=== PATIENT | female | born 1930 | race Caucasian/White ===

== ENCOUNTER 2020-05-06 16:56 | Emergency (ER) | payer SELFPAY ==
[~2020-05-06] VITALS: Ht 162.6 cm; Wt 77.3 kg
[2020-05-06 17:08] VITALS: BP 154/86; Ht 162.6 cm; Wt 77.3 kg
[2020-05-06 17:35] LABS: BILIRUBIN NEGATIVE (NEGATIVE); KETONE NEGATIVE (NEGATIVE); NITRITE NEGATIVE (NEGATIVE); UROBILINOGEN NORMAL mg/dL (< 2)
[2020-05-06 17:46] LABS: UDS - AMPHET NEGATIVE QUAL (NEGATIVE); UDS - BARB NEGATIVE QUAL (NEGATIVE); UDS - BENZO NEGATIVE QUAL (NEGATIVE); UDS - COCAINE NEGATIVE QUAL (NEGATIVE); UDS - OPIATE NEGATIVE QUAL (NEGATIVE); UDS - PCP NEGATIVE QUAL (NEGATIVE); UDS - THC NEGATIVE QUAL (NEGATIVE)
[2020-05-06 18:02] LABS: BASOPHILS 0.3 % (0-2); EOSINOPHILS 5.6 % (0-7); HEMOGLOBIN 13.8 g/dL (12-16); IMMATURE GRANULOCYTES 0.2 % (0-5); LYMPHOCYTES 17.3 % (15-50); MCH 30.1 pg (26.0-34.0); MCHC 32.1 g/dL (31.0-37.0); MCV 93.7 fL (80.0-100.0); MEAN PLATELET VOLUME 9.5 fL (7.4-10.4); MONOCYTES 6.8 % (2-11); NEUTROPHILS 69.8 % (40-80); PLATELET COUNT 183 10x3/uL (130-400); RBC 4.59 10x6/uL (4.00-5.40); RDW 13.7 % (11.5-14.5); WBC 8.6 10x3/uL (4.8-10.8)
[2020-05-06 18:11] LABS: ANION GAP 12.8 mmol/L (8-16); CALCIUM 9.4 mg/dL (8.5-10.1); CARBON DIOXIDE 28.1 mmol/L (21.0-32.0); CREATININE - SERUM 0.9 mg/dL (0.6-1.3); POTASSIUM - SERUM 3.9 mmol/L (3.5-5.1)
[2020-05-06 18:26] LABS: ALBUMIN 3.9 g/dL (3.4-5.0); BILIRUBIN - TOTAL 0.51 mg/dL (0.2-1.3); MAGNESIUM - SERUM 1.6 mg/dL (1.8-2.4); PROTEIN - SERUM 8.4 g/dL (6.4-8.2); THYROID STIMULATING HORMONE 1.25 uIU/mL (0.36-3.74)
[2020-05-06] MEDS ORDERED: GLUCOPHAGE500 MG PO (21:22)
[2020-05-06] MEDS ORDERED: ZYRTEC10 MG PO (21:23)
[2020-05-06] MEDS ORDERED: PRAVACHOL40 MG PO (21:23)
[2020-05-06] MEDS ORDERED: VESICARE10 MG PO (21:28)
[2020-05-06] MEDS ORDERED: METOPROLOL TART50 MG PO (21:29)
[2020-05-06] MEDS ORDERED: OMEPRAZOLE20 M1 PO (21:30)
[2020-05-06] MEDS ORDERED: NORVASC2.5 MG PO (21:31)
[2020-05-06] MEDS ORDERED: PLAVIX75 MG PO (21:31)
[2020-05-06] MEDS ORDERED: VOLTAREN100 GM TOPICAL (21:35)
[2020-05-06] MEDS ORDERED: KLOR-CON M2020 MEQ PO (21:38)
[2020-05-06] MEDS ORDERED: NEURONTIN 300300 MG PO (21:38)
[2020-05-06] MEDS ORDERED: HYDROCODON-ACE1 EAC7 PO (21:40)
[2020-05-06] MEDS ORDERED: SEROQUEL50 MG PO (21:40)
[2020-05-06] MEDS ORDERED: BAYER CHEWABLE81 MG PO (21:42)
== END 2020-05-06 18:54 | disposition home or self-care (01) ==
LOC: D.ER 16:56
PROVIDERS: Family Medicine
DX: Z74.09 Other reduced mobility (principal); M54.5 Low back pain; G89.29 Other chronic pain; E11.40 Type 2 diabetes mellitus with diabetic neuropathy, unspecified; R41.3 Other amnesia

== ENCOUNTER 2020-05-06 19:12 | Inpatient (IN) | payer MEDICARE, OTHER ==
[~2020-05-06] VITALS: Ht 162.6 cm; Wt 79.8 kg
--- NOTE | 2020-05-06 20:08 | NUR ---
NEW ADMIT TO DR GRAJEDA FROM HOME VIA [facility] ED RELATED TO AGGRESSION AND ANXIETY. RECEIVED VIA WHEELCHAIR WITH POA AND ED STAFF AT HER SIDE. CALM AND COOPERATIVE AT THIS TIME. JANINE, KARLOS CLAUDIO, SIGNED ADMIT CONSENTS. PT STATES SHE WANTES HER CODE STATES TO BE FULL CODE. PT IS RESTING IN HER BEDROOM ON ISOLATION WAITING RESULTS OF COVID TEST. CONTINUES TO MONITOR FOR SAFETY.
[2020-05-06 20:41] VITALS: BP 122/52
[2020-05-06] MEDS ORDERED: GLUCOPHAGE500 MG PO (21:22)
[2020-05-06] MEDS ORDERED: PRAVACHOL40 MG PO (21:23)
[2020-05-06] MEDS ORDERED: ZYRTEC10 MG PO (21:23)
[2020-05-06] MEDS ORDERED: VESICARE10 MG PO (21:28)
[2020-05-06] MEDS ORDERED: METOPROLOL TART50 MG PO (21:29)
[2020-05-06] MEDS ORDERED: OMEPRAZOLE20 M1 PO (21:30)
[2020-05-06] MEDS ORDERED: NORVASC2.5 MG PO (21:31)
[2020-05-06] MEDS ORDERED: PLAVIX75 MG PO (21:31)
[2020-05-06] MEDS ORDERED: VOLTAREN100 GM TOPICAL (21:35)
[2020-05-06] MEDS ORDERED: KLOR-CON M2020 MEQ PO (21:38)
[2020-05-06] MEDS ORDERED: NEURONTIN 300300 MG PO (21:38)
[2020-05-06] MEDS ORDERED: SEROQUEL50 MG PO (21:40)
[2020-05-06] MEDS ORDERED: HYDROCODON-ACE1 EAC7 PO (21:40)
[2020-05-06] MEDS ORDERED: BAYER CHEWABLE81 MG PO (21:42)
[2020-05-07 05:23] VITALS: BP 122/52; BMI 29.9
[2020-05-07 07:56] LABS: CHOL - HDL RATIO 2.9 ratio (2.3-4.1); CHOLESTEROL, TOTAL 191 mg/dL (0-200); HDL CHOLESTEROL 65 mg/dL (32-96); LDL CHOLESTEROL 106 mg/dL (0-100); LDL-HDL RATIO 1.6 ratio (1.5-3.5); TRIGLYCERIDE 100 mg/dL (30-200)
[2020-05-07 08:36] VITALS: BP 170/90
[2020-05-07 14:33] VITALS: Ht 162.6 cm; Wt 79.8 kg
--- NOTE | 2020-05-07 15:36 | NUR ---
ALERT, CALM, COOPERATIVE, NO AGITATION OR AGGRESSION NOTED. POOR SHORT-TERM MEMORY, OFTEN ASKS THE SAME QUESTION REPEATEDLY. COMPLIANT WITH MEDICATIONS. COOPERATIVE WITH PLAN OF CARE. CONT. PLAN OF CARE.
[2020-05-07 20:50] VITALS: BP 171/75
--- NOTE | 2020-05-07 21:38 | NUR ---
PT RESTING WITH EYES CLOSED, AROUSES TO SOFT VERBAL STIMULATION, ADM 2100 MEDS PO PER MD ORDERS, SEE EMAR, PT YARI WELL
--- NOTE | 2020-05-08 06:35 | NUR ---
PT RESTING WITH EYES CLOSED, AROUSES TO SOFT VERBAL STIMUALTION, ADM 0600 MED PO PER MD ORDERS, SEE EMAR, FALL PRECAUTIONS IN PLACE
[2020-05-08 07:15] LABS: RAPID PLASMA REAGIN Non Reactive (Non Reactive)
--- NOTE | 2020-05-08 08:30 | PSY ---
PATIENT NAME:JANES GOODWIN MEDICAL RECORD: [id number] : [birth year] LOCATION:[facility] ADMISSION DATE: 05/06/20 ACCOUNT: [id number] PSYCHIATRIC EVALUATION DATE OF EVALUATION: 05/07/20 IDENTIFYING DATA: The patient is 89 years old and she is admitted to the hospital on a voluntary basis. CHIEF COMPLAINT: Aggression. HISTORY OF PRESENT ILLNESS: The patient is a very nice and cooperative woman who clearly has evidence of significant cognitive impairment. She was brought to the emergency room by her family after it was reported that she had been aggressive with her family. She has no recollection of this. She clearly is quite impaired but again had been aggressive with the family members. PAST MEDICAL HISTORY: Significant for diabetes, hypercholesterolemia, and seasonal allergies. The patient is unable to provide much in the way of useful information and what she gives me is questionably reliable. PAST PSYCHIATRIC HISTORY: Significant for dementia. The patient was diagnosed 3 years ago with that condition. FAMILY HISTORY: Unknown. ALLERGIES: TRAMADOL. CURRENT MEDICATIONS: Include Norvasc, Mallory, Plavix, gabapentin, Lopressor, hydrocodone, Pravachol, Glucophage, and Protonix. SOCIAL HISTORY: The patient's 8 years ago. She has 2 adult children. Her daughter is her primary caregiver. She has no history of sexual abuse or trauma and apparently functioned well socially and occupationally through her adult life. MENTAL STATUS EXAMINATION: The patient is awake, alert, and oriented to person, place, and somewhat to time and situation. Her mood is euthymic. Her affect is appropriate. Thought processes are goal directed. Memory, concentration, and abstraction abilities are at least moderately impaired and she denies that she would seek to harm herself or others as well as any overt psychotic symptoms. ASSETS: Supportive family members. LIABILITIES: Limited insight. 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 AXIS II: None. AXIS III: Diabetes, hypertension. AXIS IV: Moderate stressors. AXIS V: Global assessment of functioning is 30. PLAN: At this time, the patient is admitted to the hospital secondary to aggressive behavior at home. She will be evaluated from both a medical, psychological, and social standpoint. Her long-term prognosis is guarded. NTS:[id number] Voice Confirmation ID: [id number] DOCUMENT ID: [id number] CHAYO GRAJEDA MD at 0830 CC: [id number] DICTATION DATE: 05/07/20 1600 WESTERN TACK ASSEMBLY LINE WORKER: 05/07/20 192 ADM IN [place] [id number] [place] [id number]
[2020-05-08 09:43] VITALS: BP 148/73
--- NOTE | 2020-05-08 14:51 | NUR ---
PT IN ROOM AT THIS TIME. AWAITING SARS-19 RESULTS. PT IS CALM AND COOPERATIVE WITH STAFF. PT IS ALERT TO SELF ONLY. PT HAS SHORT TERM MEMORY AND POOR INSIGHT INTO SITUATION. PT AMBULATES WITH WALKER. PT CAN MAKE NEEDS KNOWN. REDIRECT AND REORIENT NEEDED. PT CAN BE DIFFICULT REDIRECTING AT TIMES. WILL CONT PLAN OF CARE.
--- NOTE | 2020-05-08 19:07 | NUR ---
daughter in law mya donaldson called to check on pt. Nurse gave passcode to pt daughter in law. nurse gave an update on pts clothes and side rails so she does not fall of the bed. nurse left clothes out for her to change and her toothbrush is on the sink. she stated oh thank you she is a handfull i know we have been dealing with it." she thanked nurse.
[2020-05-08 20:27] VITALS: BP 139/71
--- NOTE | 2020-05-09 03:17 | NUR ---
B) Patient is restless and wanders at times, very short memory annd asks the same question several times , anxioue and looking for her family I) Administered scheduled medications as ordered, monitored for safety R) Mediation compliant, limited to her room due to waiting on Covid testing results, P) Continue plan of care.
--- NOTE | 2020-05-09 09:02 | PN ---
PATIENT:JANES GOODWIN MEDICAL RECORD: [id number] LOCATION:[facility] ADMISSION DATE: 05/06/20 PROGRESS NOTE DATE OF SERVICE: 05/08/2020 SUBJECTIVE: The patient's case was discussed with staff. She has no new complaint. OBJECTIVE: The patient is confused, but not aggressive. ASSESSMENT: Dementia. PLAN: The patient will be started on Namenda at a dose of 2.5 mg twice daily. Namenda is being used to treat her underlying cognitive impairment and she will be monitored for clinical changes associated with its use. TRANSINT:[id number] Voice Confirmation ID: [id number] DOCUMENT ID: [id number] CHAYO GRAJEDA MD at 0902 CC: [id number] DICTATION DATE: 05/08/20 1625 SCOURING PADS SUPERVISOR: 05/08/20 210 ADM IN [place] [id number] [place] [address]
[2020-05-09 09:25] VITALS: BP 165/78
--- NOTE | 2020-05-09 09:54 | NUR ---
Nutrition Follow-up: Diet: Diabetic PO intake: ~82% average x last 6 meals Last BM: none since admit. Wt: 174# (05/07/20) Meds noted: metformin, k-dur. Labs noted: POC Glu 140(H) Recommend continue current diet. RD following.
--- NOTE | 2020-05-09 10:44 | NUR ---
The patient's COVID test came back negative. She is now able to come to the day room, she ambulated with staff by her side. She is calm and pleasant this am, she has not shown any aggression this am. She has poor short term memory recall and poor insight into her situation. She uses a walker to ambulate. She ambulates, toilets, and feeds herself. Provide prescribed meds. The patient is compliant with meds. Continue POC.
[2020-05-09 20:19] VITALS: BP 142/52
--- NOTE | 2020-05-10 03:41 | NUR ---
B) Patient is alert and oriented to self, very confused and unaware, follow instructions, social with peers, I) Administered scheduled medications as ordered, monitored for safety R) Mediation compliant, pleasnat and friendly this shift, P) Continue plan of care.
--- NOTE | 2020-05-10 09:48 | NUR ---
The patient is awake and alert, she is pleasant, she has poor short term memory recall, she is trying to speak with all of the other ladies and socialize. At times she uses word salad and loses her train of thought and says "Oh just forget it, I forgot." She ambulates with a walker, toilets, and feeds herself. She has not shown any aggression or anxiety today. Provide prescribed meds. The patient is compliant with meds. Continue POC
[2020-05-10 10:07] VITALS: BP 156/76
--- NOTE | 2020-05-10 15:26 | NUR ---
The patient came upto me and said "Since my family doesn't know I'm here." I said "yes, ma'am your family knows you are here, I just spoke to your grand daughter." She acted in disbelief. She said "Well, if they know I'm here why don't they come after me?" Explained to her that the Dr. has not released her. She said "Well, I've never seen a Dr." Explained to her that you see two every day, a medical and a psychiatrist. She said "Well, I need a psychiatrist that's for sure." She then went and sat with another patient and they discussed how they have never seen a Dr. since they have been here.
--- NOTE | 2020-05-10 16:11 | NUR ---
[place] had two visitors show up, let them know that "Our hospital policy is that one patient can only have one visitor in a 24 hour period." I did let the other person see the patient through the glass door.
[2020-05-10 21:30] VITALS: BP 154/68
--- NOTE | 2020-05-11 02:36 | NUR ---
B) Patient is alert and oriented to self, very forgetful and confused, social with peers, I) Administered scheduled medications as ordered, assisted with needs, redirected as needed, R) Mediation compliant. calm and cooperative, P) Continue plan of care.
--- NOTE | 2020-05-11 08:01 | NUR ---
The patient is awake and alert, she is pleasant and she has poor short term memory recall, she has poor insight into her situation. She knows her name, not place or time. She ambulates with a walker, eats, and toilets independently. She has not shown any aggression or anxiety this am. Provide prescribed meds. The patient is compliant with meds. Continue POC.
[2020-05-11 08:50] VITALS: BP 159/75
--- NOTE | 2020-05-11 19:43 | NUR ---
RECEIVED IN DAYROOM. SITTING IN A CHAIR WITH PEERS AT HER SIDE. CALM AND COOPERATIVE WITH CARE AND ASSESSMENT. NO SIGNS OF AGGRESSION. REDIRECT AND REOREINT NEEDED. CONTINUES TO SIT CALMLY IN DAYROOM. CONTINUE PLAN OF CARE.
[2020-05-11 20:31] VITALS: BP 130/55
[2020-05-12 08:35] VITALS: BP 149/69
--- NOTE | 2020-05-12 17:55 | NUR ---
RECEIVED IN HALLWAY OUTSIDE OF NURSES STATION. CALM AND COOPERATIVE WITH CARE AND ASSESSMENT. NO AGITATION OR AGGRESSION. REDIRECT AND REORIENT NEEDED. EATING AT THIS TIME. CONTINUE PLAN OF CARE.
--- NOTE | 2020-05-12 19:50 | NUR ---
RECEIVED IN DAYROOM. SITTING IN A CHAIR WITH PEERS AT HER SIDE. CALM AND COOPERATIVE WITH CARE AND ASSESSMENT. NO SIGNS OF AGGRESSION. REDIRECT AND REORIENT NEEDED. CONTINUES TO SIT CALMLY IN DAYROOM. CONTINUE PLAN OF CARE.
[2020-05-12 20:45] VITALS: BP 144/66
[2020-05-13 08:32] VITALS: BP 153/72
--- NOTE | 2020-05-13 17:13 | PN ---
PATIENT:JANES GOODWIN MEDICAL RECORD: [id number] LOCATION:[facility] ADMISSION DATE: 05/06/20 PROGRESS NOTE DATE OF SERVICE: 05/12/2020 SUBJECTIVE: The patient's case was discussed with staff. She has no new complaint. OBJECTIVE: The patient is very impaired cognitively, but has not been disruptive in any way. ASSESSMENT: Dementia. PLAN: The patient's Namenda is going to be discontinued. The family tells me that it was not effective and that she took it for a couple years in the past. TRANSINT:[id number] Voice Confirmation ID: [id number] DOCUMENT ID: [id number] CHAYO GRAJEDA MD at 1713 CC: [id number] DICTATION DATE: 05/12/20 1625 EMBROIDERY SUPERVISOR: 05/13/20 0005 ADM IN [facility] [address] [place] [address]
[2020-05-13 19:56] VITALS: BP 131/69
--- NOTE | 2020-05-13 21:39 | NUR ---
RECEIVED IN DAYROOM. SITTING IN A CHAIR WITH PEERS AT HER SIDE. CALM AND COOPERATIVE WITH CARE AND ASSESSMENT. NO SIGNS OF AGGRESSION. REDIRECT AND REORIENT NEEDED. RESTING IN BED WITH EYES CLOSED AT THIS TIME. CONTINUE PLAN OF CARE.
[2020-05-14 08:30] VITALS: BP 125/62
--- NOTE | 2020-05-14 08:30 | PN ---
PATIENT:JANES GOODWIN MEDICAL RECORD: [id number] LOCATION:[facility] ADMISSION DATE: 05/06/20 PROGRESS NOTE DATE OF SERVICE: 05/13/2020 SUBJECTIVE: The patient's case was discussed with staff. She has no new complaint. OBJECTIVE: The patient has been in good behavioral control. She is tolerating her medicines well. She denies that she would seek to harm herself or others. ASSESSMENT: Dementia. PLAN: The patient is going to be maintained on current medicines. I anticipate she can be transitioned out of the hospital soon if this level of improvement continues. TRANSINT:[id number] Voice Confirmation ID: [id number] DOCUMENT ID: [id number] CHAYO GRAJEDA MD at 0830 CC: [id number] DICTATION DATE: 05/13/201729 SENIOR APPLICATIONS ARCHITECT: 05/14/20 0253 ADM IN [facility] [address] [place] [address]
--- NOTE | 2020-05-14 11:36 | NUR ---
PT IS AWAKE AND ALERT X 1. CALM AND COOPERATIVE WITH ASSESSMENT. PRESCRIBED MEDS PROVIDED ORDERED. MED COMPLIANT. NO BEHAVIORS NOTED AT THIS TIME. REDIRECT AND REORIENT NEEDED. FALL PRECAUTIONS IN PLACE. WILL CPOC.
--- NOTE | 2020-05-14 13:04 | NUR ---
Nutrition Follow-up: Diet: Diabetic PO intake: 100% x last 9 meals Last BM: none recorded since admit. Wt: 183# (05/11/20); Admit Wt: 174# (05/06/20) Meds noted: metformin, K-dur. Labs noted (05/14/20): POC Glu 130(H) Recommend continue current diet. Consider adding bowel regimen as pt with no recorded BM x at least [address] following.
--- NOTE | 2020-05-14 14:25 | NUR ---
Rec'd Patient up ambulatory with walker, calm, confused, and coorp. A/O to person. instructions to current medications and side effects. Patient nodded head in agreeement. re-oriented to date/time/situation. encouraged one to one and group activities/sessions. patient is motivated to continue inprovement and return home.
[2020-05-14] MEDS ORDERED: NORVASC5 MG PO (16:16)
[2020-05-14] MEDS ORDERED: SEROQUEL25 MG PO (16:16)
[2020-05-14] MEDS ORDERED: BUSPAR5 MG PO (16:16)
[2020-05-14] MEDS ORDERED: GLUCOPHAGE500 MG PO (16:17)
[2020-05-14] MEDS ORDERED: Lamisil Cream TOPICAL (16:17)
[2020-05-14] MEDS ORDERED: HYDROCORTISONE 1% TOPICAL (16:17)
[2020-05-14 20:00] VITALS: BP 142/66
--- NOTE | 2020-05-14 22:14 | NUR ---
B.) PT IS ALERT AND ORIENTED TO SELF ONLY. SHE HAS POOR INSIGHT INTO HER SITUATION. SHE CAN BE DEMANDING TO STAFF MEMBERS AT TIMES. SHE IS USING A WALKER TO ASSIST WITH AMBULATION. SHE IS ABLE TO VOICE NEEDS AND WANTS. I.) PROVIDED PM MEDICATIONS PRESCRIBED. REDIRECT NEEDED. R.) COMPLIANT WITH ALL MEDICATIONS. EASY TO REDIRECT. P.) WILL CONTINUE TO MONITOR.
[2020-05-15 08:07] VITALS: BP 143/79
--- NOTE | 2020-05-15 14:29 | NUR ---
late entry for today at 1230. patient plans for discarge home today. reviewed and educated on current medications and medication uses, DC plans for home and home care. participated in one to one and group activities/session this am. positive feedback provided after participation.
--- NOTE | 2020-05-15 15:38 | PN ---
PATIENT:JANES GOODWIN MEDICAL RECORD: [id number] LOCATION:[facility] ADMISSION DATE: 05/06/20 PROGRESS NOTE DATE OF SERVICE: 05/14/2020 SUBJECTIVE: The patient's case was discussed with staff. She has no new complaint. OBJECTIVE: The patient is in good behavioral control. She has shown improvement in her behaviors, but no real change in her underlying level of cognitive impairment. She has no symptoms that would represent a direct or acute risk to herself or others. ASSESSMENT: Dementia. PLAN: The patient is going to be transitioned out of the hospital tomorrow. She is going to go home with her family and home health will follow up with her. TRANSINT:[id number] Voice Confirmation ID: [id number] DOCUMENT ID: [id number] CHAYO GRAJEDA MD at 1538 CC: [id number] DICTATION DATE: 05/14/20 1614 BUSINESS ANALYTICS FACULTY MEMBER: 05/15/20 0109 DIS IN 05/15/20 [place] [id number] [place] [address]
== END 2020-05-15 14:20 | disposition home health service (06) | DRG 57 ==
LOC: D.PSYCH 19:12
PROVIDERS: ADMIT Psychiatry & Neurology Psychiatry; ATTEND Psychiatry & Neurology Psychiatry
DX: G30.1 Alzheimer's disease with late onset (principal); F02.81 Dementia in other diseases classified elsewhere, unspecified severity, with behavioral disturbance; E11.9 Type 2 diabetes mellitus without complications; I10 Essential (primary) hypertension; E78.5 Hyperlipidemia, unspecified; N32.81 Overactive bladder; M54.5 Low back pain; G89.29 Other chronic pain; M19.90 Unspecified osteoarthritis, unspecified site; R26.9 Unspecified abnormalities of gait and mobility; J30.9 Allergic rhinitis, unspecified; G62.9 Polyneuropathy, unspecified; L21.9 Seborrheic dermatitis, unspecified; R60.0 Localized edema